=== PATIENT | female | born 1935 | race Caucasian/White ===

== ENCOUNTER → 2017-12-04 | Outpatient (CLI) | payer OTHER ==
[~2017-12-04] MED LIST: CELE100C PO; CLOBETASOL OINTMENT TD; DIAZ5TAB4 PO; GABA300C10 PO; HYDR-3240 PO; LISI-170 PO
== END | disposition home or self-care (01) ==
LOC: CFH 16:03
PROVIDERS: ATTEND Family Medicine
DX: M79.605 Pain in left leg (principal); R60.0 Localized edema; Z88.0 Allergy status to penicillin; Z88.3 Allergy status to other anti-infective agents